=== PATIENT | male | born 1975 ===

== ENCOUNTER 2021-01-29 08:44 | Outpatient (CLI) | payer OTHER | END 2021-01-29 09:01 | disposition home or self-care (01) | LOC: SONOGRAMA 08:44 → MAMO-SONO 10:45 | PROVIDERS: ATTEND General Practice | DX: R22.32 Localized swelling, mass and lump, left upper limb (principal); G89.29 Other chronic pain; Z13.89 Encounter for screening for other disorder; Z13.220 Encounter for screening for lipoid disorders; Z11.3 Encounter for screening for infections with a predominantly sexual mode of transmission; F17.200 Nicotine dependence, unspecified, uncomplicated; I10 Essential (primary) hypertension ==